=== PATIENT | male | born 1990 | race African-American/Black ===

== ENCOUNTER 2023-01-19 11:55 | Emergency (ER) | payer SELFPAY ==
[2023-01-19 12:29] VITALS: BP 116/73; PULSE 84; RESP 18; TEMP 36.5; O2SAT 100; BMI 24.0
--- NOTE | 2023-01-19 12:32 | CRLHL7_ITS ---
For Patients: As a result of the Cures Act, medical imaging exams and procedure reports are released immediately into your electronic medical record. You may view this report before your referring provider. If you have questions, please contact your health care provider. INDICATION: Injury COMPARISON: 01/12/2023 TECHNIQUE: Three views right hand. FINDINGS: BONES: No fracture. Normal mineralization. No focal bone lesion. JOINT: Normal joint alignment. Joint spaces: Normal. Soft Tissues: Normal. No foreign body. IMPRESSION: Normal right hand radiographs. Dictated by Michelle Worrell MD @ 01/19/2023 1:49:41 PM (Electronically Signed)
--- NOTE | 2023-01-19 13:44 | ED_ITS ---
HPI - General Adult General Chief complaint: Extremity Pain/Injury, Upper Stated complaint: R hand injury Time Seen by Provider: 01/19/23 12:00 History of Present Illness HPI narrative: Patient is a 32-year-old male who hit his right hand on a wall few days ago and got an x-ray to Urgent Care that was negative. He actually bumped it again apparently last night it was more swollen and presents back to the ER for evaluation he had an urgent care x-ray already at this time. That is available for review. He has no open wounds. No other injuries reported. Describes his health as being good. No home medications. Related Data Home Medications Medication Instructions Recorded Confirmed No Known Home Medications 01/12/23 01/12/23 Allergies Allergy/AdvReac Type Severity Reaction Status Date / Time shellfish Allergy Severe Anaphylaxis Uncoded 01/12/23 13:28 Review of Systems Status of ROS: Reports: 6 or more systems reviewed and unremarkable except as noted in History and below Exam Narrative: Exam Narrative: Objective: Vital signs are within normal limits His right hand shows swelling over the 4th and 5th metacarpals, no point tenderness, no crepitus. No open wounds. Range of motion the hand is fairly full with exception of full squeezing and flexion of the fingers. No marked bruising noted. Const: Vital Signs, click to edit/add: Vital Signs - 24 hr 01/19/23 12:29 Temperature 97.7 F Pulse Rate [Right Pulse Oximeter] 84 Respiratory Rate 18 Blood Pressure [Ri ght Upper Arm] 116/73 Pulse Oximetry 100 Oxygen Delivery Me thod Room Air Course Vital Signs Vital signs: Initial Vital Signs Temperature 97.7 F 01/19/23 12:29 Temperature Source Temporal Artery Scan 01/19/23 12:29 Pulse Rate 84 01/19/23 12:29 Respiratory Rate 18 01/19/23 12:29 Blood Pressure 116/73 01/19/23 12:29 Blood Pressure Mean 87 01/19/23 12:29 Blood Pressure Position Sitting 01/19/23 12:29 Pulse Oximetry 100 01/19/23 12:29 Oxygen Delivery Method Room Air 01/19/23 12:29 Vital Signs Temperature 97.7 F 01/19/23 12:29 Pulse Rate 84 01/19/23 12:29 Respiratory Rate 18 01/19/23 12:29 Blood Pressure 116/73 01/19/23 12:29 Pulse Oximetry 100 01/19/23 12:29 Oxygen Delivery Method Room Air 01/19/23 12:29 Temperature 97.7 F 01/19/23 12:29 Pulse Rate 84 01/19/23 12:29 Respiratory Rate 18 01/19/23 12:29 Blood Pressure 116/73 01/19/23 12:29 Pulse Oximetry 100 01/19/23 12:29 Oxygen Delivery Method Room Air 01/19/23 12:29 Medical Decision Making MDM Narrative Medical decision making narrative: 32-year-old male with repeat injury to the right hand, evidence of swelling over the 4th and 5th metacarpal. X-rays reviewed today in by my read there is no fracture noted on the film. I think it be reasonable to simply splint the area have him ice aggressively and use Advil or ibuprofen for the next few days and then follow up with primary care in 5-7 days certainly sooner change concerns, recommend light activity and light use of the hand until it feels better. Also recommend follow-up as described, he was comfortable plan. Discharge Plan Discharge Clinical Impression: Contusion of hand Patient Disposition: Home, Self-Care Condition: Stable Additional Instructions: Would recommend wearing the wrist splint so the hand does not move his much in gives little protection, would recommend Advil or Aleve on a regular basis for a couple of days, continue to ice the hand 5-10 minutes 3 to 5 times a day for the next several days. Light use of the right hand and recheck with regular doctor in 5-7 days. Activity Level: Light activity Discharge Diet: Regular Prescriptions: No Action No Known Home Medications Follow Up/Referrals: Provider,Not a Local [Primary Care Provider] - Stand Alone Forms: [employer] Info Instructions
== END 2023-01-19 13:57 | disposition home or self-care (01) ==
LOC: ED 13:48
PROVIDERS: Emergency Provider Family Medicine
DX: S60.221A Contusion of right hand, initial encounter (principal); W22.8XXA Striking against or struck by other objects, initial encounter
CPT/HCPCS: 29130; 73130; 99283